=== PATIENT | female | born 1980 | race Caucasian/White ===

== ENCOUNTER 2020-07-28 18:19 | Emergency (ER) | payer MEDICAID, OTHER ==
--- NOTE | 2020-07-28 20:12 | EDM.PDOC ---
ED HPI GENERAL MEDICAL PROBLEM - General Chief Complaint: General Stated Complaint: MEDICAL CLEARANCE Time Seen by Provider: 07/28/20 20:03 Source of Information: Reports: Patient History Limitations: Reports: No Limitations - History of Present Illness INITIAL COMMENTS - FREE TEXT/NARRATIVE: Patient is a 40-year-old female presents today in police custody for medical clearance. Patient dates she has a bump on her arm that is painful. Patient had a similar lump on the side of her face that had to be I&D and has some pus draining. Patient states that she has felt a little feverish but been tolerating p.o. has no nausea vomiting or other concerning symptoms. - Related Data Allergies Allergy/AdvReac Type Severity Reaction Status Date / Time Penicillins AdvReac Nausea and Verified 06/02/20 15:15 MDT Vomiting Home Meds: Home Meds Non-Formulary Medication [NF Drug] 1 each VAG ASDIRECTED 06/02/20 [History] Amoxicillin/Potassium Clav [Augmentin 875-125 Tablet] 1 each PO BID #20 tablet 06/04/20 [Rx] Nicotine [Habitrol] 21 mg TRDERM DAILY #21 patch 06/04/20 [Rx] Clindamycin HCl 450 mg PO TID 5 Days #15 capsule 07/28/20 [Rx] Past Medical History HEENT History: Reports: Other (See Below) Other HEENT History: pt wears glasses Cardiovascular History: Reports: None Respiratory History: Reports: Other (See Below) Other Respiratory History: Lung Infection; had surgery to the right lung and also a chest tube Gastrointestinal History: Reports: None Genitourinary History: Reports: None [employer] History: Reports: None Musculoskeletal History: Reports: None Neurological History: Reports: None Psychiatric History: Reports: 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 Endocrine/Metabolic History: Reports: None Hematologic History: Reports: None Immunologic History: Reports: None Oncologic (Cancer) History: Reports: None Dermatologic History: Reports: Other (See Below) Other Dermatologic History: pt states she has had cellulitis on arm before. - Infectious Disease History Infectious Disease History: Reports: None - Past Surgical History Respiratory Surgical History: Reports: Other (See Below) GI Surgical History: Reports: Other (See Below) Social & Family History - Family History Family Medical History: No Pertinent Family History - Caffeine Use Caffeine Use: Reports: None ED ROS GENERAL - Review of Systems Review Of Systems: See Below Constitutional: Reports: No Symptoms HEENT: Reports: No Symptoms Respiratory: Reports: No Symptoms Cardiovascular: Reports: No Symptoms Endocrine: Reports: No Symptoms GI/Abdominal: Reports: No Symptoms : Reports: No Symptoms Musculoskeletal: Reports: No Symptoms Skin: Reports: Other (abscess) Neurological: Reports: No Symptoms Psychiatric: Reports: No Symptoms Hematologic/Lymphatic: Reports: No Symptoms Immunologic: Reports: No Symptoms ED EXAM, GENERAL - Physical Exam Exam: See Below Exam Limited By: No Limitations General Appearance: Alert, WD/WN, No Apparent Distress Respiratory/Chest: No Respiratory Distress, Lungs Clear Cardiovascular: Normal Peripheral Pulses, Regular Rate, Rhythm GI/Abdominal: Normal Bowel Sounds, Soft, Non-Tender Neurological: Alert, Oriented Skin Exam: Other (abscess under left arm pit ) ED I&D PROCEDURES - I&D Site: left under arm Skin prep: Providone-Iodine (Betadine) Local anesthesia - Lidocaine (Xylocaine): 1% Plain Local Anesthetic Volume: 2cc Area Incised With: 11 Blade Drainage: Purulent Probed to Break Up Loculations: Yes Packed With: None Sterile Dressinx4(s) Complications: No Course - Vital Signs Last Recorded V/S: Last Vital Signs Temp 99.1 F 07/28/20 20:08 Pulse 74 07/28/20 20:08 Resp 16 07/28/20 20:08 BP 120/76 07/28/20 20:08 Pulse Ox 100 07/28/20 20:08 - Orders/Labs/Meds Meds: Medications Discontinued Medications Generic Name Dose Route Start Last Admin Trade Name Miguel PRN Reason Stop Dose Admin Clindamycin HCl 450 mg 07/28/20 20:15 07/28/20 20:49 Clindamycin Hcl 150 Mg Cap PO 07/28/20 20:16 450 mg NOW ONE Administration Lidocaine HCl 5 ml 07/28/20 20:08 07/28/20 20:49 Lidocaine 1% 5 Ml Sdv INJECT 07/28/20 20:09 5 ml ONETIME ONE Administration Lidocaine HCl Confirm 07/28/20 20:45 07/28/20 20:49 Lidocaine 1% 5 Ml Sdv Administered 07/28/20 20:46 Not Given Dose 5 ml .ROUTE .STK-MED ONE - Re-Assessments/Exams Free Text/Narrative Re-Assessment/Exam: 07/28/20 20:59 Patient's abscess was I&D to get amount of pus came out. Patient has some pressure relief and feels better. Patient has allergy to penicillin will be sent home clindamycin for the next 5 days. Departure - Departure Time of Disposition: 21:00 Disposition: Home, Self-Care 01 Condition: Good Clinical Impression: Abscess of axilla, left - Discharge Information *PRESCRIPTION DRUG MONITORING PROGRAM REVIEWED*: Not Applicable *COPY OF PRESCRIPTION DRUG MONITORING REPORT IN PATIENT EDMAR: Not Applicable Prescriptions: Clindamycin HCl 450 mg PO TID 5 Days #15 capsule Instructions: Skin Abscess, [id number]-lp-Lxab Referrals: Deepa Crain [employer] [Primary Care Provider] - Forms: ED Department Discharge Additional Instructions: The following information is given to patients seen in the emergency department who are being discharged to home. This information is to outline your options for follow-up care. We provide all patients seen in our emergency department with a follow-up referral. The need for follow-up, as well as the timing and circumstances, are variable depending upon the specifics of your emergency department visit. If you don't have a primary care physician on staff, we will provide you with a referral. We always advise you to contact your personal physician following an emergency department visit to inform them of the circumstance of the visit and for follow-up with them and/or the need for any referrals to a consulting specialist. The emergency department will also refer you to a specialist when appropriate. This referral assures that you have the opportunity for follow-up care with a specialist. All of these measure are taken in an effort to provide you with optimal care, which includes your follow-up. Under all circumstances we always encourage you to contact your private physician who remains a resource for coordinating your care. When calling for follow-up care, please make the office aware that this follow-up is from your recent emergency room visit. If for any reason you are refused follow-up, please contact the [facility] Emergency Department at and asked to speak to the emergency department charge nurse. Please follow up with your primary care physician. If you do not have a primary care physician, see below: [facility] [address] [place] [id number] My [facility] [address] [place] [address] You were seen today for abscess on your left arm. We were able to open up and drain some of the pus. We will send you on antibiotics. This should heal. If she continue to drain just continue to apply the gauze there to help out with the drainage. If you have any increased redness increased swelling fever chills please return to the ED. Sepsis Event Note (ED) - Focused Exam Vital Signs: Vital Signs Temp Pulse Resp BP Pulse Ox 07/28/20 20:08 99.1 F 74 16 120/76 100 - Assessment/Plan Plan: Patient is a 40-year-old female presents today in police custody for medical clearance. Patient does have abscess on the left arm that we will I&D and placed antibiotics.
[2020-07-28] MEDS ORDERED: Clindamycin HCl 150 MG Cap PO ONE (20:15)
[2020-07-28 21:01] VITALS: BP 107/60; PULSE 80
== END 2020-07-28 21:12 | disposition home or self-care (01) ==
LOC: MW.ED 18:19
DX: L02.412 Cutaneous abscess of left axilla (principal); Z88.0 Allergy status to penicillin
CPT/HCPCS: 10060; 99283; A9270